=== PATIENT | female | born 1980 | race Caucasian/White ===

== ENCOUNTER → 2018-03-04 | Outpatient (CLI) | payer BC, OTHER ==
--- NOTE | 2018-03-05 10:20 | US ---
EXAM DESCRIPTION: Breast,Right: Ultrasound CLINICAL HISTORY: 37 yearsFemaleMASS RIGHT BREAST COMPARISON: Digital diagnostic tomosynthesis and conventional mammography right breast on the same visit. Ultrasound right breast 12/14/2015. TECHNIQUE: Transcutaneous scanning of the right breast utilizing murrell-scale and Doppler modes. Scanning performed by the retail sales associate and Dr. Cornejo. FINDINGS: Scanning all 4 quadrants of the right breast. Large hypoechoic breast mass with circumscribed borders again identified retroareolar position measuring 5.0 x 4.7 cm. Appears slightly more homogeneous than on the prior study, parallel orientation and posterior enhancement features. Nonvascular. 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 Surrounded by mostly fibroglandular echotexture. Hypoechoic circumscribed mass with parallel orientation and posterior enhancement features at the 300 clock position 3 cm from the nipple. Measurements are 9.1 x 7.5 mm. Most likely a fibroadenoma. 5 cm from the nipple also at the 300 clock position is a circumscribed hypoechoic mass with parallel orientation and posterior enhancement features measuring 2.2 x 1.7 cm. Biopsy proven fibroadenoma in 2016. At the 100 clock position 3 cm from the nipple is a circumscribed hypoechoic mass with parallel orientation and posterior enhancement features measuring 12 x 9 mm. At the 1100 clock position 6 cm from the nipple, is a hypoechoic circumscribed microlobulated border mass with parallel orientation and predominantly posterior enhancement features. Measures 1.7 x 1.9 cm. Slight enlargement since the prior study. This is abutting a slightly more hypoechoic mass with circumscribed margins and variable posterior enhancement and shadowing. Parallel orientation and measuring 11 x 10 mm. Slight enlargement since the prior study. Also at 1100 clock position, slightly posterior, 8 cm from the nipple, is a circumscribed mass with a "hump" superiorly or contiguous mass. Parallel orientation and mixed posterior enhancement/shadowing. Overall dimension is 2.2 x 2.3 cm. Biopsy earlier than fibroadenoma in 2016. No distinct cysts or large calcifications were detected. No parenchymal edema. No overlying skin changes. No abnormal vascularity. IMPRESSION: 1. BI-RADS CATEGORY: 4 - SUSPICIOUS. SUB - CATEGORY 4A: LOW SUSPICION FOR MALIGNANCY. 2. Please refer to digital diagnostic right breast tomosynthesis and mammography examination and report on this visit. The FINDINGS and various follow-up plans were reviewed in person with the patient after the examination. Written communication explaining the IMPRESSION and FOLLOW-UP will be mailed to the patient and referring care provider. Electronically signed by: Srinivas Cornejo MD 03/05/2018 10:19 AM CDT
--- NOTE | 2018-03-05 10:20 | MAM ---
EXAM DESCRIPTION: 3D Diagnostic, Right: Digital Mammography CLINICAL HISTORY: 37 yearsFemaleMASS RIGHT BREAST multiple right breast masses. 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 This mass is more painful since the prior study. Other masses biopsy consistent with fibroadenoma.. COMPARISON: Bilateral diagnostic digital breast mammography 12/14/2015. Ultrasound right breast 12/14/2015. Ultrasound-guided biopsy right breast mass is 01/08/2016. . TECHNIQUE: Right breast CC LM MLO projection full-field images, digital mammographic tomosynthesis technique. Right breast full-field 2-D MLO images. Spot magnification two-dimensional retroareolar right breast mass in the CC and LM projections. CAD not utilized. FINDINGS: The breast parenchymal density pattern is: Extremely dense breast tissue, which lowers the sensitivity of mammography. No skin thickening or nipple retraction large retroareolar mass again seen in the right breast measuring approximately 4.5 x 3.5 cm. No definite calcifications. Slightly denser than the surrounding fibroglandular tissues. More laterally in the middle third is a 1.9 cm mass with partially circumscribed borders at the 1000 clock position approximately 7 cm from the nipple. Slightly more posterior and medial at the 1200 clock position are 2 masses measuring 1 cm and 2 cm, smaller mass superior to the larger mass, and approximately 12 cm from the nipple. Another mass with circumscribed borders measures 6.9 cm from the nipple at the 230 clock position in the middle third of the breast; measures approximately 2.1 cm in greatest diameter. 2 more circumscribed masses measuring approximately 1.5 cm in diameter at the 300 clock position of the breast in the posterior nipple line abutting the pectoral muscle. 1.1 cm mass at the 300 clock position posterior medial breast 10 cm from the nipple. No microcalcifications associated with these smaller more posterior masses. Ultrasound: Scanning all 4 quadrants of the right breast. Large hypoechoic breast mass with circumscribed borders again identified retroareolar position measuring 5.0 x 4.7 cm. Appears slightly more homogeneous than on the prior study, parallel orientation and posterior enhancement features. Nonvascular. 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 Surrounded by mostly fibroglandular echotexture. Hypoechoic circumscribed mass with parallel orientation and posterior enhancement features at the 300 clock position 3 cm from the nipple. Measurements are 9.1 x 7.5 mm. Most likely a fibroadenoma. 5 cm from the nipple also at the 300 clock position is a circumscribed hypoechoic mass with parallel orientation and posterior enhancement features measuring 2.2 x 1.7 cm. Biopsy proven fibroadenoma in 2016. At the 100 clock position 3 cm from the nipple is a circumscribed hypoechoic mass with parallel orientation and posterior enhancement features measuring 12 x 9 mm. At the 1100 clock position 6 cm from the nipple, is a hypoechoic circumscribed microlobulated border mass with parallel orientation and predominantly posterior enhancement features. Measures 1.7 x 1.9 cm. Slight enlargement since the prior study. This is abutting a slightly more hypoechoic mass with circumscribed margins and variable posterior enhancement and shadowing. Parallel orientation and measuring 11 x 10 mm. Slight enlargement since the prior study. Also at 1100 clock position, slightly posterior, 8 cm from the nipple, is a circumscribed mass with a "hump" superiorly or contiguous mass. Parallel orientation and mixed posterior enhancement/shadowing. Overall dimension is 2.2 x 2.3 cm. Biopsy earlier than fibroadenoma in 2016. No distinct cysts or large calcifications were detected. No parenchymal edema. No overlying skin changes. No abnormal vascularity. IMPRESSION: 2 solid masses at the 1100 clock position of the right breast 6 cm from the nipple have enlarged slightly since the prior study, and the more posterior mass demonstrates darker echoes and more posterior shadowing. The retroareolar mass appears stable, but patient states more painful since the prior study. BI-RADS CATEGORY 4: SUSPICIOUS. SUB-CATEGORY 4A - LOW SUSPICION FOR MALIGNANCY. FOLLOW-UP: Surgical tissue diagnosis should be considered. Excisional biopsy with mammographic guided wire localization of posterior masses, versus ultrasound-guided wire localization or needle core biopsy. The FINDINGS and follow-up plan were reviewed in person with the patient following the examination. Written communication explaining the IMPRESSION and follow-up will be mailed to the patient and referring care provider. Electronically signed by: Srinivas Cornejo MD 03/05/2018 10:19 AM CDT
== END ==
LOC: MAMMO 07:51
PROVIDERS: ATTEND Surgery
DX: N63.41 Unspecified lump in right breast, subareolar (principal)
CPT/HCPCS: 76641; 77065; G0279